=== PATIENT | male | born 1985 | race Caucasian/White ===

== ENCOUNTER 2017-01-12 11:56 | Inpatient (IN) | payer OTHER ==
[2017-01-12] VITALS (23 sets, daily range): BP systolic 127–155; BP diastolic 60–94; PULSE 86–114; RESP 16–20; Ht 185.4 cm; Wt 129.0 kg
[~2017-01-12] VITALS: Ht 185.4 cm; Wt 129.0 kg
[2017-01-12] MEDS ORDERED: FLUO10CA66 PO (12:32)
[2017-01-12] MEDS ORDERED: OXYC30TA PO (12:33)
[2017-01-12] MEDS ORDERED: LISI10TA2 PO (12:35)
[2017-01-12] MEDS ORDERED: MELO-110 PO (12:37)
[2017-01-12] MEDS ORDERED: MULT1TAB96 PO (12:38)
[2017-01-12] MEDS ORDERED: ZOLP10TA5 PO (12:39)
[2017-01-12] MEDS ORDERED: PRAZ2CAP2 PO (12:39)
[2017-01-12] MEDS: D5W-0.45 NACL + KCL 20 MEQ 1,000 ML IV SCH (16:24)
--- NOTE | 2017-01-12 16:24 | HPN ---
Date/Time of Note Date/Time of Note DATE: 01/12/17 TIME: 16:24 Interval H&P Admission Note Pt. seen H&P reviewed: No system changes EULALIA MALIK PA-C Jan 12, 2017 16:24
[2017-01-12] MEDS ORDERED: AL HYDROX/MG HYDROX/SIMETH 30 ML CUP PO PRN (16:30)
[2017-01-12] MEDS ORDERED: DIPHENHYDRAMINE 50 MG INJ IV PRN ×2 (16:30→18:00)
[2017-01-12] MEDS ORDERED: ACETAMINOPHEN 325 MG TAB PO PRN (16:30)
[2017-01-12] MEDS: CEFAZOLIN 1 GM/50 ML (PMX) 50 ML IVPB SCH (16:30)
[2017-01-12] MEDS ORDERED: HYDROCODONE/APAP (10/325) TAB PO PRN ×2 (16:30)
[2017-01-12] MEDS ORDERED: BISACODYL 10 MG SUPP PR PRN (16:30)
[2017-01-12] MEDS ORDERED: HYDROmorphONE 1 MG/ML SYG IV PRN (16:30)
[2017-01-12] MEDS ORDERED: CEPASTAT LOZENGE MT PRN (16:30)
[2017-01-12] MEDS ORDERED: NALOXONE (0.4 MG/ML) INJ IV PRN (16:30)
[2017-01-12] MEDS ORDERED: SURGIFOAM POWDER 1 GM KIT ONE (16:37)
[2017-01-12] MEDS ORDERED: POLYMYXIN/BACITRACIN 1L IRRIG ONE (16:37)
[2017-01-12] MEDS ORDERED: THROMBIN 5000 UNIT VIAL ONE ×3 (16:37→18:01)
[2017-01-12] MEDS ORDERED: MIDAZOLAM 1 MG/ML 2 ML INJ ONE (16:49)
[2017-01-12] MEDS ORDERED: PROPOFOL 20 ML ONE ×3 (16:49→17:22)
[2017-01-12] MEDS ORDERED: SUCCINYLCHOLINE CHLORIDE 100 MG/5 ML SYG IV ONE ×2 (16:49→17:26)
[2017-01-12] MEDS ORDERED: METOCLOPRAMIDE 10 MG INJ ONE (16:49)
[2017-01-12] MEDS ORDERED: FENTAnyl 50 MCG/ML VIAL ONE ×4 (17:08→19:01)
[2017-01-12] MEDS ORDERED: HYDROmorphONE 2 MG/ML SYG ONE (17:12)
[2017-01-12] MEDS ORDERED: BUPIVACAINE 0.25%/EPI (SDV) 30 ML INJ ONE (17:14)
[2017-01-12] MEDS ORDERED: CEFAZOLIN 1 GM INJ ONE (17:14)
[2017-01-12] MEDS ORDERED: ROCURONIUM 50 MG INJ ONE (17:26)
[2017-01-12] MEDS ORDERED: BUPIVACAINE 0.25%/EPI (SDV) 30 ML INJ INJ ONE (17:32)
[2017-01-12] MEDS ORDERED: METOPROLOL 5 MG INJ ONE (17:48)
[2017-01-12] MEDS ORDERED: CA CHLORIDE 10% 10 ML SYRINGE ONE (17:59)
[2017-01-12] MEDS ORDERED: ONDANSETRON 4 MG INJ IV PRN (18:00)
[2017-01-12] MEDS ORDERED: MEPERIDINE 25 MG INJ IV PRN (18:00)
[2017-01-12] MEDS ORDERED: METOCLOPRAMIDE 10 MG INJ IV PRN (18:00)
[2017-01-12] MEDS ORDERED: HYDROmorphONE (0.2 MG/ML) 10ML SYG IV PRN ×3 (18:00)
[2017-01-12] MEDS ORDERED: ONDANSETRON 4 MG INJ ONE (19:08)
[2017-01-12] MEDS ORDERED: NEOSTIGMINE 3 MG/3 ML SYRINGE ONE (19:08)
[2017-01-12] MEDS ORDERED: GLYCOPYRROLATE 1 MG INJ ONE (19:08)
[2017-01-12] MEDS: HYDROmorphONE 0.2 MG/ML PCA IV SCH (20:27)
--- NOTE | 2017-01-12 20:36 | OPR ---
DATE OF OPERATION: 01/12/2017 PREOPERATIVE DIAGNOSES: 1. Right L3-4 disk extrusion with inferior migration and radiculopathy. 2. Morbid obesity -- BMI 37. POSTOPERATIVE DIAGNOSES: 1. Right L3-4 disk extrusion with inferior migration and radiculopathy. 2. Morbid obesity -- BMI 37. OPERATION PERFORMED: 1. Right L3 hemilaminotomy. 2. Right L4 hemilaminotomy. 3. Right L3-4 diskectomy. 4. Use of C-arm fluoroscopy with interpretation without radiologist present. 5. Intraoperative neuromonitoring (3 hours). 6. Use of operative microscope. 7. Epidural injection via catheter. PRIMARY SURGEON: Jared Jamil MD CHARTING CLERK: LUI Norton NEED FOR CLINICAL CYTOGENETICIST: During this spinal surgical procedure, my operator/assistant foreman was used to retrac t and protect the spinal nerves and dural sac. My operator/assistant foreman also employed the suction catheters to evacuate blood from the surgical field to improve visualization of the neural structures. The leela tant was medically necessary to facilitate the completion of the surgery in a safe and expeditious m hari. State of [place] regulations, as well as hospital bylaws, preclude the use of non-license d health care personnel, such as operating room technicians, to perform these functions. FINDINGS: Neuromonitoring at the start of the case revealed right L3 amplitude down 40%, right L4 a mplitude down 60%, right L5 amplitude down 30%. The patient was morbidly obese and extended instrum ents had to be utilized. The patient had a large extruded fragment. This was inferiorly migrated a nd when removed was 7 cm in length. ESTIMATED BLOOD LOSS: 30 mL. DRAINS: None. SPECIMENS: Disk. COMPLICATIONS OF PROCEDURES: None. ANESTHESIOLOGIST: Dr. Srinivasan TYPE OF ANESTHESIA: General. INDICATIONS FOR PROCEDURE: This is a 31-year-old gentleman with right lumbosacral radiculopathy in the setting of a large disk extrusion with inferior migration. He was losing function and therefore it was recommended he undergo the above procedure. Preoperatively, we discussed the risks, benefit s, and alternatives. He understood and wished to proceed. DESCRIPTION OF PROCEDURE IN DETAIL: The patient was identified in the preoperative holding area, [facility], taken to the operating room, where he was successfully placed under general an esthesia. Neuromonitoring leads were placed. Sequential compressive devices were applied. Neuromo nitoring was utilized during the procedure for 2 hours to include SSEP, MEP, and EMG. This was perf ormed by [employer]. Start time was 5:30 p.m., closure time was 7:30 p.m. The patient was pl aced on the operating table in prone position over Alex frame. All bony prominences were well pad ded. Back was prepped and draped in usual sterile fashion. Using the C-arm fluoroscope, I identifi ed the incision site. I anesthetized the skin, subcutaneous tissue, and paraspinal musculature with 0.25% Marcaine and epinephrine. I made a 5 cm incision over the L3-4 level. Incision was taken do wn to the dorsal fascia. Approximately 3 to 4 inches of adipose tissue was present between the skin and the deep fascia. I then incised the fascia and subperiosteally dissected the right L3 and L4 l darline. Due to the patient's morbid obesity with BMI 37, height 6 feet 1 inches tall, weight 275 angela nds, extended instruments had to be utilized. This complicated the procedure and added surgical luis felipe e of at least 30 minutes extra. I then placed a Kaya retractor and placed a Kerrison under what w as felt to be the L3 lamina and took a repeat lateral film to confirm the correct levels. Once this was confirmed, the microscope was brought in. The patient had a very thick lamina and therefore I had to use a high speed bur in order to thin down the lamina. I then used a Kerrison punch to perfo rm a hemilaminotomy of L3. His facet was quite medial. Therefore, I performed a partial medial fac etectomy. The extrusion went distally below the pedicle of L4 and, therefore, I had to perform a he milaminotomy of the L4 lamina, as well. This decompression was beyond what was required for standar d diskectomy. I was able to remove the ligamentum flavum. I then identified the pedicle. I was ab le to identify the extruded fragment. A large extruded fragment measuring at least 7 cm in length w as removed. This significantly decompressed the canal. I then identified the rent in the anulus. This was quite medial and, therefore, I did make a small annulotomy more laterally, and I entered th e disk space and removed multiple additional fragments. Once this was done, all nerve signals retur khanh to normal. Hemostasis was achieved with bipolar cautery and Surgifoam. The wound was then irri gated. A Valsalva maneuver was performed and there was no leak of CSF. Again, this was all done un monae the microscope. I then passed an epidural catheter through which I injected 100 mcg of fentanyl . The catheter was pulled. Anesthesiologist jessie peripheral blood, which was spun using the [employer] an device. I took quite platelet-poor plasma mixed this with thrombin and injected this over the du ra for hemostatic purposes. The retractors were then removed. I then closed the deep fascia with # 1 Vicryl stitch. I closed the deep subcutaneous tissue with a #1 Vicryl stitch. I then closed subc utaneous tissue with a 2-0 Vicryl stitch. Microscope was taken off the field. The patient had a ta ttoo and care was taken in order to reapproximate the edges and a 4-0 Monocryl closure was then perf ormed. Dermabond and sterile dressings were then applied. The patient was then awakened from anest hesia and taken to recovery room in stable condition. Lap, sponge, and instrument counts were corre ct x2. There were no apparent complications during the procedure. The patient will be admitted to the orthopedic parker for routine postoperative care to include pain c ontrol, neurovascular checks, antibiotics, and physical therapy. Dictated By: JARED TALBOT/KERRI Conf#: [id number] DID#: [id number]
[2017-01-12] MEDS: DOCUSATE SODIUM 100 MG CAP PO SCH (22:13)
[2017-01-12] MEDS: ZOLPIDEM 5 MG TAB PO PRN ×2 (22:16→23:14)
[2017-01-12] MEDS: CARISOPRODOL 350 MG TAB PO PRN (22:16)
[2017-01-13 00:30] VITALS: BP 138/60; PULSE 98; RESP 16
[2017-01-13] MEDS: D5W-0.45 NACL + KCL 20 MEQ 1,000 ML IV SCH ×2 (00:40→12:24)
[2017-01-13] MEDS: CEFAZOLIN 1 GM/50 ML (PMX) 50 ML IVPB SCH ×2 (00:40→09:06)
[2017-01-13 01:30] VITALS: BP 124/59; PULSE 97; RESP 16
--- NOTE | 2017-01-13 03:59 | RADRPT ---
PROCEDURE: Fluoroscopy services during lumbar surgery. CLINICAL INDICATION: Back pain, now for L3-4 microdiskectomy. TECHNIQUE: Fluoroscopy services during lumbar surgery. COMPARISON: None. FINDINGS: Fluoroscopy services during lumbar surgery. 4 intraoperative spot films were obtained at intermedia te stages during this procedure and demonstrate localization and instrumentation over the dorsal asp ect of the lower lumbar spine. 12 seconds of fluoroscopy time were employed during this procedure. IMPRESSION: Fluoroscopy services during lumbar surgery. RPTAT: [facility] Physician Mera Date Time Electronically viewed and signed by Physician Mera on 01/13/2017 03:59 RS/
[2017-01-13 05:16] LABS: ADD SCAN DIFF NO
[2017-01-13 05:31] LABS: BASOPHIL # 0.1 10^3/ul (0.0-0.1); BASOPHILS % 0.5 % (0.0-2.0); EOSINOPHILS # 0.3 10^3/ul (0.0-0.5); EOSINOPHILS % 2.2 % (0.0-7.0); HEMATOCRIT 39.5 % (42.0-52.0); HEMOGLOBIN 13.2 g/dl (14.0-18.0); LYMPHOCYTES # 2.8 10^3/ul (0.8-2.9); LYMPHOCYTES % 22.9 % (15.0-51.0); MEAN CORPUSCULAR HEMOGLOBIN 28.9 pg (29.0-33.0); MEAN CORPUSCULAR HGB CONC 33.4 g/dl (32.0-37.0); MEAN CORPUSCULAR VOLUME 86.4 fl (82.0-101.0); MEAN PLATELET VOLUME 9.7 fl (7.4-10.4); MONOCYTE # 0.9 10^3/ul (0.3-0.9); MONOCYTES % 7.5 % (0.0-11.0); NEUTROPHILS % 65.9 % (39.0-77.0); PLATELET COUNT 279 10^3/UL (140-415); RED BLOOD COUNT 4.57 10^6/ul (4.70-6.10); RED CELL DISTRIBUTION WIDTH 12.1 % (11.5-14.5); WHITE BLOOD COUNT 12.1 10^3/ul (4.8-10.8)
[2017-01-13 05:40] LABS: POTASSIUM 3.7 mmol/L (3.5-5.1)
[2017-01-13 05:43] LABS: CREATININE 0.91 mg/dl (0.61-1.24)
[2017-01-13 05:44] LABS: CALCIUM 8.8 mg/dl (8.4-10.2); MAGNESIUM 1.8 mg/dl (1.7-2.5)
[2017-01-13] MEDS: HYDROmorphONE 0.2 MG/ML PCA IV SCH (06:49)
[2017-01-13 08:18] VITALS: BP 130/80; RESP 19
[2017-01-13] MEDS: DOCUSATE SODIUM 100 MG CAP PO SCH (09:06)
--- NOTE | 2017-01-13 10:35 | DS ---
DATE OF ADMISSION: 01/12/2017 DATE OF DISCHARGE: 01/13/2017 ADMITTING DIAGNOSIS: Disk herniation. DISCHARGE DIAGNOSIS: Disk herniation. PROCEDURE: Patient was taken to the operating room o 01/12/2017 underwent right L3-4 microdiskectom y. HOSPITAL COURSE: The patient was admitted to the orthopedic parker after undergoing the above procedu re. His hospital course was uncomplicated. By postop day 1, he was deemed stable for discharge wit h followup arranged with the undersigned. Dictated By: SHERI MARIO MD BB/NTS Conf#: [id number] DID#: [id number]
--- NOTE | 2017-01-13 13:14 | CONS ---
DATE OF ADMISSION: 01/12/2017 DATE OF CONSULTATION: Thank you, Dr. Jamil, for asking me to participate in medical management of this patient. REASON FOR CONSULTATION: To manage the patient's hypertension and posttraumatic stress syndrome. HISTORY OF PRESENT ILLNESS: This 31-year-old man has been having low back pain radiating down his r ight leg. The patient was found to have a 7 cm herniated disk at the right L3-4 disk level with inf erior migration and radiculopathy. Yesterday, he underwent a right L3 hemilaminectomy, right L4 hem ilaminectomy, right L3-4 diskectomy. He is now 1 day postop. He says that he is able to get up and walk, but he is quite stiff in the low back. MEDICATIONS: The patient is on the following medication: 1. Docusate sodium 100 mg twice a day. 2. Oxycodone 15 mg by mouth as needed. 3. Valium 5 mg by mouth once a day. 4. Lisinopril 10 mg a day. 5. Hydroxyzine 25 mg by mouth 4 tablets at bedtime. 6. Prazosin 2 mg tablets 3 at night daily. 7. Cyclobenzaprine 10 mg 3 times a day. 8. Zolpidem 10 mg at night. 9. Acetaminophen 10. Topamax 50 mg by mouth 3 times a day. 8. Prozac 30 mg 3 tablets daily. PAST MEDICAL HISTORY: Remarkable for hypertension, PTSD, left elbow tendinitis, sleep disorder, lef t hip displacement, back pain. PAST SURGICAL HISTORY: Left shoulder repair, right knee surgery, wisdom teeth extraction. 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 He is single with 2 children. Tobacco 4 to 5 cigarettes a day. Alcohol used occasionally. ALLERGIES: HE HAS NO KNOWN ALLERGIES. PHYSICAL EXAMINATION: GENERAL: At this time reveals a well-developed man in no apparent distress. VITAL SIGNS: Temperature 98, pulse is 72, respirations 19, blood pressure 130/80, O2 saturation 98% on room air. HEENT: Head normocephalic. Eyes: Extraocular muscles intact. NOSE AND MOUTH: Normal. NECK: Supple. No neck vein distention. LUNGS: Clear to auscultation. HEART: Regular rhythm. No murmurs, gallops or rubs. ABDOMEN: Soft, nontender. EXTREMITIES: No peripheral edema. IMPRESSION: The patient is now postop a lumbar spine surgery for a herniated disk at the L3-L4 leve l. The patient was having radiculopathy preoperatively. He is able to walk today, but feels stiff in the back. PLAN: 1. Resume some routine medications. 2. Postop lumbar spine surgery protocol. 3. Possibly discharge today if his equipment order can be secured. Dictated By: BETZY NGUYEN MD, ND/KERRI Conf#: [id number] DID#: [id number]
[2017-01-13] MEDS: CARISOPRODOL 350 MG TAB PO PRN (13:22)
[2017-01-13] MEDS ORDERED: FLUOXETINE 10 MG CAP PO SCH (14:00)
[2017-01-13] MEDS ORDERED: PRAZOSIN 1 MG CAP PO SCH (21:00)
[2017-01-14] MEDS ORDERED: LISINOPRIL 10 MG TAB PO SCH (09:00)
[2017-01-14] MEDS ORDERED: MULTIVITAMIN PO SCH (09:00)
[2017-01-14] MEDS ORDERED: [UNRECOGNIZED DRUG - OTHER] PO SCH (09:00)
[2017-01-14] MEDS ORDERED: MULTIVITAMINS/MINERALS TAB PO SCH (09:00)
== END 2017-01-13 16:15 | disposition home or self-care (01) | DRG 520 ==
LOC: REC 11:56 → EDSEX 15:00 → MS1 21:45
PROVIDERS: ADMIT Specialist; ATTEND Specialist
PROC: 0SB20ZZ Excision of Lumbar Vertebral Disc, Open Approach (ICD-10-PCS; principal; 2017-01-12 17:00)
DX: M51.16 Intervertebral disc disorders with radiculopathy, lumbar region (principal); I10 Essential (primary) hypertension; E66.9 Obesity, unspecified; Z68.37 Body mass index [BMI] 37.0-37.9, adult; F43.10 Post-traumatic stress disorder, unspecified
CPT/HCPCS: 72020; 80048; 83735; 85025; 86999; 97163; J0330; J0690; J1170; J2250; J2405; J2710; J2765; J3010; J3480

== ENCOUNTER 2017-02-22 02:36 | Emergency (ER) | payer OTHER ==
[~2017-02-22] VITALS: Ht 185.4 cm; Wt 120.0 kg
[~2017-02-22 02:36] MED LIST: FLUO10CA66 PO; LISI10TA2 PO; MELO-110 PO; MULT1TAB96 PO; OXYC30TA PO; PRAZ2CAP2 PO; ZOLP10TA5 PO
[2017-02-22 02:39] VITALS: Ht 185.4 cm; Wt 120.0 kg
--- NOTE | 2017-02-22 06:18 | ERD ---
ER Documentation Chief Complaint Date/Time DATE: 02/22/17 TIME: 06:16 Chief Complaint re-injured back on mechanical bull, laminectomy 01/11, +ETOH HPI 31-year-old male presents to the emergency department complaining of back pain. Patient is approximately 4 months status post a discectomy. Patient was drinking alcohol last night and got a mechanical bull. Since then, he is began developing low back pain. Patient denies any fevers, chills, numbness, tingling, bowel or bladder incontinence. His pain is localized to the low back and does not radiate. He describes it as moderate to severe. ROS All systems reviewed and are negative except as per history of present illness. Medications Home Meds Reported Medications Zolpidem Tartrate* (Zolpidem Tartrate*) 10 Mg Tablet, 10 MG PO QHS Y for INSOMNIA, #30 TAB 01/12/17 Prazosin Hcl* (Prazosin Hcl*) 2 Mg Capsule, 2 MG PO TID, CAP 01/12/17 Multivitamin,Ther and Minerals (Vitamin and Minerals) 1 Each Tablet, 1 EACH PO DAILY, TAB 01/12/17 Meloxicam* (Mobic*) 15 Mg Tablet, 15 MG PO DAILY, #30 TAB 01/12/17 Lisinopril* (Lisinopril*) 10 Mg Tablet, 10 MG PO DAILY, #30 TAB 01/12/17 Oxycodone Hcl* (IR) (Oxycodone Hcl*) 30 Mg Tablet, 30 MG PO Q6 Y for PAIN, TAB 01/12/17 Fluoxetine Hcl* (Prozac*) 10 Mg Capsule, 30 MG PO DAILY, CAP 01/12/17 Allergies Allergies: Coded Allergies: No Known Allergy (Unverified , 01/12/17) PMhx/Soc History of Surgery: Yes (SINUS SX, R KNEE SX X 2, SHOULDER SX, GOGO. MASTECTOMY) Anesthesia Reaction: No Hx Neurological Disorder: No Hx Respiratory Disorders: No Hx Cardiac Disorders: Yes (HTN) Hx Psychiatric Problems: Yes (ANXIETY) Hx Miscellaneous Medical Probl: Yes (HTN, anxiety, R shoulder sx, B mastectomy , R knee surgery x 2) Hx Alcohol Use: No Hx Substance Use: No Hx Tobacco Use: No Smoking Status: Never smoker FmHx Noncontributory for chief complaint Physical Exam Vitals Vital Signs Date Time Temp Pulse Resp B/P Pulse Ox O2 Delivery O2 Flow Rate FiO2 02/22/17 02:39 97.2 111 20 142/66 97 Physical Exam General: well developed, well nourished, in no distress. Neuro: Normal speech, gait, balance Back: No midline spinal tenderness. Previous operative scar noted. No evidence of infection. Procedures/MDM Patient was taken to a room, seen and examined Medical decision making: Patient presents today with atraumatic back pain. Although infection, malignancy, GI, , and vascular causes have been considered in this patient, the patients clinical presentation is most consistent with a musculoskeletal cause. There is neither evidence of any acute neurologic damage, nor of loss of function and thus, advanced imaging studies have been deferred. Patient will be treated conservatively with appropriate pain control with precautionary discharge instructions provided. Departure Diagnosis: Primary Impression: Back pain Condition: Stable Patient Instructions: Back Pain (Acute Or Chronic) Additional Instructions: Please see your doctor this week. Return for any problems or concerns TEJAS STERN February 22, 2017 06:18
[2017-02-22 06:20] VITALS: BP 139/68; PULSE 74; RESP 18; TEMP 98
== END 2017-02-22 06:21 | disposition home or self-care (01) ==
LOC: E/R 02:36
DX: M54.5 Low back pain (principal); I10 Essential (primary) hypertension
CPT/HCPCS: 99282